=== PATIENT | female | born 1965 | race Caucasian/White ===

== ENCOUNTER 2024-12-03 06:27 | Emergency (ER) | payer SELFPAY ==
[2024-12-03] VITALS (22 sets, daily range): BP systolic 129–156; BP diastolic 81–114; PULSE 74–106; TEMP 36.8; O2SAT 94–99; BMI 30.3
--- NOTE | 2024-12-03 06:56 | PC.NURSE ---
Pt in darkened room wearing sunglasses. at the bedside.
--- NOTE | 2024-12-03 07:11 | ECG_ITS ---
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 Measurements Intervals [place] Rate: 94 P: 42 MI: 162 QRS: 38 QRSD: 74 T: 50 QT: 326 QTc: 378 Interpretive Statements 1100 Sinus rhythm 9110 normal ECG No previous ECG available for comparison Electronically Signed On 12-03-2024 9:31:55 EDT by VALENTINA KELLY M.D.
--- NOTE | 2024-12-03 07:13 | ED.GENADUL1 ---
HPI HPI - General Adult General Chief complaint: Headache Stated complaint: VOMITING, HEADACHE Time Seen by Provider: 12/03/24 07:07 Source: patient Mode of arrival: walk-in History of Present Illness HPI narrative: 58-year-old female presents for headache. She has had it for about 24 hours and is mostly frontal but goes into her ears. No trauma or fever or stiff neck. She has been nauseous and has been vomiting. She is on blood pressure medication but has not taken it since the night before last. The pain is moderate to severe and continuous. Related Data Home Medications ?Medication ?Instructions ?Recorded ?Confirmed empagliflozin 10 mg tablet 10 mg PO DAILY 12/03/24 12/03/24 (Jardiance) ketorolac 0.4 % eye drops drp ophthalmic (eye) 12/03/24 lisinopril 10 mg tablet mg 12/03/24 montelukast 10 mg tablet mg 12/03/24 pantoprazole 40 mg tablet,delayed mg PO 12/03/24 release rosuvastatin 20 mg tablet mg 12/03/24 tirzepatide 15 mg/0.5 mL mg subcut 12/03/24 subcutaneous pen injector (Mounjaro) trazodone 300 mg tablet mg 12/03/24 valacyclovir 1 gram tablet mg 12/03/24 Previous Rx's ?Medication ?Instructions ?Recorded xorwknbufg-nftnrcsabtpfo-jmxjgrsz 1 cap PO Q6H PRN pain 5 days #20 12/03/24 50 mg-300 mg-40 mg capsule caps (Fioricet) ondansetron 4 mg disintegrating 4 mg PO Q6H PRN nausea and 12/03/24 tablet vomiting #20 tabs Allergies Allergy/AdvReac Type Severity Reaction Status Date / Time albuterol AdvReac Severe Hypotension Verified 12/03/24 06:51 Opioid HPI Opioid Management Most Recent Opioid Data: Last Pain Scale 8 Today, 09:19 Last MAR Pain Assessment Today, 07:38 Review of Systems ROS Narrative A ten point review of systems is negative except as noted above. PFSH PFSH Social History Little interest or pleasure in doing things: not at all Feeling down, depressed, or hopeless: not at all Exam Narrative Exam Narrative: Nurses note and vital signs reviewed and patient is not hypoxic. General: The patient is sitting in a darkened room with sunglasses on. Skin: Warm, dry, no pallor noted. There is no rash noted. Head: Normocephalic, atraumatic; neck supple, no nuchal rigidity Eye: Normal conjunctiva, no drainage, EOMI. PERRL Ears, Nose, Mouth, and Throat: oral mucosa is moist. Nares patent. Cardiovascular: Regular Rate and Rhythm Respiratory: Patient is in no distress, no accessory muscle use, lungs are clear to auscultation, no wheezing, rales or rhonchi Back: non-tender GI: Soft and nontender Musculoskeletal: The patient has no evidence of calf tenderness, no pitting edema, symmetrical pulses noted bilaterally Neurological: A&O, normal speech; upper and lower extremity strength intact and symmetric Psychiatric: Cooperative Constitutional Vital Signs, click to edit/add: Last Vital Signs Temp 98.3 F 12/03/24 06:39 Pulse 87 12/03/24 10:10 Resp 16 12/03/24 10:10 BP 131/81 12/03/24 10:00 Pulse Ox 95 12/03/24 10:10 O2 Del Method Room Air 12/03/24 06:39 Course Vital Signs Vital signs: Vital Signs Temperature 98.3 F 12/03/24 06:39 Pulse Rate 98 H 12/03/24 06:39 Respiratory Rate 16 12/03/24 06:39 Blood Pressure 156/114 H 12/03/24 06:39 Pulse Oximetry 98 12/03/24 06:39 Oxygen Delivery Method Room Air 12/03/24 06:39 Temperature 98.3 F 12/03/24 06:39 Pulse Rate 87 12/03/24 10:10 Respiratory Rate 16 12/03/24 10:10 Blood Pressure 131/81 12/03/24 10:00 Pulse Oximetry 95 12/03/24 10:10 Oxygen Delivery Method Room Air 12/03/24 06:39 Medical Decision Making MDM Narrative Medical decision making narrative: Her workup including CT brain is negative. Blood pressure has improved as well without specific intervention. She is discharged home on Fioricet and Zofran and feels improved. Treatment diagnosis and follow-up were discussed with the patient. Differential Diagnosis Differential Diagnosis: Hypertension, headache, intracranial hemorrhage Lab Data Lab results reviewed: Yes I reviewed the patient's lab results Labs: Lab Results 12/03/24 Range/Units 07:24 WBC 7.9 (4.0-11.0) 10^3/uL RBC 5.42 H (4.20-5.40) 10^6/uL Hgb 15.9 (12.0-16.0) g/dL Hct 46.5 (36.0-48.0) % MCV 85.8 (81.0-99.0) fL MCH 29.3 (26.7-34.0) pg MCHC 34.2 (29.9-35.2) g/dL RDW 13.0 (11.0-15.0) % Plt Count 224 (150-450) 10^3/uL MPV 8.7 L (9.5-13.5) fL Neut % (Auto) 77.7 H (43.0-75.0) % Lymph % (Auto) 15.2 L (20.5-60.0) % Callaway % (Auto) 5.9 (1.7-12.0) % Eos % (Auto) 1.0 (0.9-7.0) % Baso % (Auto) 0.1 L (0.2-2.0) % Neut # (Auto) 6.1 (1.4-6.5) 10^3/uL Lymph # (Auto) 1.2 (1.2-3.8) 10^3/uL Callaway # (Auto) 0.5 (0.3-0.8) 10^3/uL Eos # (Auto) 0.1 (0.0-0.7) 10^3/uL Baso # (Auto) 0.0 (0.0-0.1) 10^3/uL Abs Immat Gran (auto) 0.01 (0.00-0.03) 10^3/uL Imm/Tot Granulo (auto) 0.1 (0.0-0.5) % Sodium 141 (136-145) mmol/L Potassium 3.5 (3.5-5.1) mmol/L Chloride 102 (98-107) mmol/L Carbon Dioxide 25.3 (21.0-32.0) mmol/L Anion Gap 17.2 BUN 16.0 (7.0-18.0) mg/dL Creatinine 0.71 (0.55-1.02) mg/dL Est GFR ( Amer) >60 (>=60 mL/min/1.73m^2) Est GFR (Non-Af Amer) >60 (>=60 mL/min/1.73m^2) BUN/Creatinine Ratio 22.5 Glucose 86 (74-106) mg/dL Calcium 8.8 (8.5-10.1) mg/dL Imaging Data CT scan - head: Radiologist's impression: ITS Impressions Head CT 12/03/24 08:35 IMPRESSION: NO ACUTE INTRACRANIAL ABNORMALITY. Impression dictated by: Tamara Black M.D. 12/03/2024 9:22 AM Dictation Location: [place] [address] Electronically authenticated by: [id number] Y Date: 12/03/2024 09:22 ECG Data Attestation: I personally reviewed and interpreted this ECG as follows: (EKG on my interpretation shows sinus rhythm with rate of 94) Discharge Plan Discharge Chief Complaint: Headache Clinical Impression: Headache Patient Disposition: Home, Self-Care Time of Disposition Decision: 10:40 Condition: Good Mode of Transportation: Private Vehicle Prescriptions / Home Meds: New xduwupezkf-qbwkagwqwgilu-vhyz [Fioricet] 50-300-40 mg capsule 1 cap PO Q6H PRN (Reason: pain) 5 Days Qty: 20 0RF ondansetron 4 mg tablet,disintegrating 4 mg PO Q6H PRN (Reason: nausea and vomiting) Qty: 20 0RF No Action valacyclovir 1 gram tablet pantoprazole 40 mg tablet,delayed release (DR/EC) PO lisinopril 10 mg tablet trazodone 300 mg tablet montelukast 10 mg tablet rosuvastatin 20 mg tablet ketorolac 0.4 % drops OPHTHALMIC (EYE) Mounjaro 15 mg/0.5 mL pen injector SUBCUT Jardiance 10 mg tablet 10 mg PO DAILY Print Language: Italian Instructions: Acute Headache (ED) Referrals: Allan Brunson MD [Physician, Family Practice] - 1 week
--- OUTSIDE RECORDS SUMMARY | 2024-12-03 07:17 | XMS_ITS | Data Portability ---
Author Organization [place] - [facility], [facility] Address [address] [place] [address], [place] [address] Care Team Providers Care [employer] Member Name Role Phone ORESTES RUBALCAVA Primary Care Provider Assessment No assessment recorded. Plan of Treatment Reminders Order Date Submit Date Provider Last Modified By Organization Details Last Modified Time Details Appointments None recorded. Lab influenza virus A + B + SARS-CoV-2 (COVID19) Ag panel, rapid IA, upper respirator y specimen 2023 024 [email or web address] [facility], [address] [place] [address], [place], [address], 4 17:07:53 respirator y pathogens DNA and RNA, SALVATORE+probe, respirator y specimen 2023 024 SADIA [facility], [address] [place] [address], [place], [address], 4 20:06:15 Referral orthopedic surgeon referral - Imaging: [email or web address]: [email or web address] 2024 025 AKIL Zheng MD, [address], [place], [address], 5 11:09:59 Procedures None recorded. Surgeries None recorded. Imaging XR, foot, 3 or more view 2024 025 [email or web address] [facility], [address] [place] [address], [place], [address], 10:54:15 Medication Orders ketorolac 10 mg tablet 2024 025 [place] [address], [address] [place] [address], [place], [address], 10:50:46 neomycin-p olymyxin-h ydrocort 3.5 mg-10,000 unit/mL-1 % ear drops,susp 2023 024 [place] [address], [address] [place] [address], [place], [address], 17:08:57 Augmentin 875 mg-125 mg tablet 2023 024 [place] [address], [place], [address], 17:08:00 fluticason e propionate 50 mcg/actuat ion nasal spray,susp ension [address] [place], [address], 17:07:59 Patient TargetsNo targets recorded. Patient Instructions Encounter Date Encounter Id Patient Instructions Last Modified By Organization Details Last Modified Time 02/05/2024 [id number] increase oral fluids meds as prescribed sinus irrigation as discussed continue sudafed return for shortness of breath, worsening cough [email or web address] Not available 02/05/2024 17:07:04 If your conditio n worsens we recommend that you receive another evaluation at the emergency room immediately or contact your primary medical clinics after hours call service to discuss your concerns. You must understand that you've received an Urgent Care treatment only and that you may released before all your medical problems are known or treated. You, the patient, will arrange follow up care as instructed. Return to clinic if symptoms get worse or persist after 48 hours of treatment. [email or web address] Not available 02/05/2024 17:06:53 08/11/2024 [id number] RICE: 1: Rest Pa in is your body's signal that something is wrong. As soon as you're hurt, stop your activity, and rest as much as possible for the first 2 days. avoid putting weight on the injured area for 24 to 48 hours. Resting also helps prevent further bruising. 2: Ice Ice is a pbrwp-yvj-fxtj tool for reducing pain and swelling. Apply an ice pack (covered with a light, absorbent towel to help prevent frostbite) for 15-20 minutes every two to three hours during the first 24 to 48 hours after your injury. Don't have an ice pack? A bag of frozen peas or corn will work just fine. 3: Compression This means wrapping the injured area to prevent swelling. Wrap the affected area with an elastic medical bandage (like an JUNE bandage). You want it to be snug but not too tight -- if it's too tight, it will interrupt blood flow. If the skin below the wrap turns blue or feels cold, numb, or tingly, loosen the bandage. If these symptoms don't disappear right away, seek immediate medical help. 4: Elevation Doing so reduces pain, throbbing, and swelling. It's not as tricky to do as you might think. For example, if you have an ankle sprain, you can prop your leg up on pillows while sitting on the sofa. Keep the injured area raised whenever possible, even when you're not icing it. [email or web address] Not available 08/11/2024 10:46:15 MDM: MODERATE COMPLEXITY Right foot pain since this am. Differential Diagnosis includes, but not limited to: sprain, strain, fracture, subluxation, contusion, among others. I addressed one acute, uncomplicated injury. Unique tests ordered and independently reviewed/interpret ed include : Foot X-Ray. Prescription drug management provided today with Toradol. Post op shoe applied and patient given crutches and instructed on proper use. Will refer to ortho. Discussed signs and symptoms of concern and when to return to the clinic vs. going to the emergency department. Instructed to follow up with primary care provider if symptoms persist or worsen. Patient verbalized understanding. All questions answered to the patient's satisfaction. Patient left the clinic in stable condition at time of discharge. [email or web address] Not available 08/11/2024 10:50:06 Reason for Referral Orthopedic Surgeon Referral for Pain in left foot Imaging: [email or web address] Referring Physician: Naomi Thorne, Family Medicine, Encounter Date: 08/11/2024 Results Created Date Observation Date Name Description Value Unit Range Abnormal Flag Note LastModifiedBy Organization Detail LastModifiedTime 02/05/20 24 02/05/2024 respi rator y patho gens DNA and RNA, SALVATORE+p robe, respi rator y speci men PANEL: COVID RESPIR ATORY PLUS Not Available [facility] [address] [place], [address], 02/05/2024 17:01:24 02/05/20 24 02/05/2024 influ aditya virus A + B + SARS- CoV-2 (COVI D19) Ag panel , rapid IA, upper respi rator y speci men Flu/COVID-19 Negati ve Not Available [facility] [address] [place], [address], 02/05/2024 17:01:13 08/12/19 25 08/11/2024 XR, foot, 3 or more view No observ ation record ed. [email or web address] [facility] [address] [place], [address], 08/11/2024 10:50:11 Result Notes None recorded. Problems Name Problem SNOMED Code Status Onset Date Resolution Date Notes Provider Name and Address Organization Details Recorded Time Hypercholester olemia 01847277 Active 2023 Juan Pablo dunaway, [place] - [facility] 4 16:31:52 Gastroesophage al reflux disease 374478733 Active 2023 Juan Pablo dunaway, [place] - [facility] 4 16:32:22 Hypertensive disorder 46220173 Active 2023 Juan Pablo dunaway, [facility] 4 16:32:36 Diabetes mellitus 83097204 Active 2023 [place] [facility] 4 16:39:13 Problem Notes None recorded. Medical Equipment None Reported. Allergies Allergen ID Allergen Name Allergen Category Reaction Reaction Severity Criticality Documentation Date Start Date Code Code System Note Provider Name and Address Organization Details Recorded Time 46477 albuterol medicatio n Not available Not available Not available 02/05/2024 435 RxNorm [place] [facility] 4 16:30:27 Medications Name Sig Start Date Stop Date Status Note LastModified by Organization Details LastModified Time Augmentin 875 mg-125 mg tablet Take 1 tablet every 12 hours by oral route for 10 days, for sinus infection. 2023 active Not Available Not Available Not Avai lable ketorolac 10 mg tablet Take 1 tablet every 6 hours by oral route for 5 days. 2024 active Not Available Not Available Not Avai lable fluticasone propionate 50 mcg/actuatio n nasal spray,suspen meme Augusta 1 spray every day by intranasal route for 14 days, for sinus congestion. 2023 active Not Available Not Available Not Avai lable neomycin-daysi ymyxin-hydro alexys 3.5 mg-10,000 unit/mL-1 % ear drops,susp INSTILL 4 DROPS INTO AFFECTED EAR(S) BY OTIC ROUTE 3 TIMES PER DAY 2023 active Not Available Not Available Not Avai lable melatonin active Not Available Not Atiya ilable Not Available lisinopril active Not Available Not Av ailable Not Available trazodone active Not Available Not Atiya ilable Not Available Vitamin D3 active Not Available Not Av ailable Not Available Zyrtec active Not Available Not Availa ble Not Available pantoprazole active Not Available Not Available Not Available rosuvastatin active Not Available Not Available Not Available Jardiance active Not Available Not Atiya ilable Not Available Vitals Date Recorded Body height Body temperature Respiratory rate Oxygen saturation Oxygen saturation in Arterial blood by Pulse oximetry Heart rate Body mass index (BMI) Body weight Systolic blood pressure Diastolic blood pressure Provider Name and Address Organization Details Last Updated DateTime 5 154.94 cm 96.4 [degF] 18 /min 98 % 98 % 91 /min 31.2 kg/m2 22266.7 4 g 132 mm[Hg] 86 mm[Hg] Tuan conner [place] - [facility] 5 09:58:11 Date Recorded Respiratory rate Body height Body mass index (BMI) Body weight Body temperature Oxygen saturation Oxygen saturation in Arterial blood by Pulse oximetry Heart rate Systolic blood pressure Provider Name and Address Organization Details Last Updated DateTime 4 18 /min 154.94 cm 31.2 kg/m2 51245.7 4 g 98 [degF] 95 % 95 % 106 /min 113 mm[Hg] Juan Pablo Peters [place] - [facility] 4 16:34:13 Social History None recorded. 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 Family History Nothing Reported. Medical History Condition Response Coronary Artery Disease N Gout N Anxiety/Depression N Atrial Fibrillation N Colon Cancer N Kidney Stones N Hyperthyroidism N Blood disorders N Breast Cancer N Ostomy N COPD N Depression N Lung Disease N Glaucoma N Hypothyroidism N Pacemaker N Peripheral Arterial Disease N Clotting Disorder N Prostate Problems N Diverticulitis/Diverticulosis N Paralysis N Lung Mass N Deep Vein Thrombosis N Obstructive Sleep Apnea N Cystic Fibrosis N Anxiety Disorder N Autoimmune disease N Arthritis N Blood Clot N Developmental Problems N Cancer N Stroke N Crohn's Disease N Chronic Kidney Disease N Endometriosis N Bladder or Kidney Problems N High Cholesterol Y Liver Disease N Arrhythmia N Dialysis N Schizophrenia N Fibromyalgia N Kidney Disease N Chronic Obstructive Pulmonary Disease N Parkinson's Disease N Migraines N Brain Tumors N ADD/ADHD N Anemia N Multiple Sclerosis N Colon Polyps N Brain Injury N Heart Attack ([place]) N Diabetes Y Anticoagulation therapy N Cardiomyopathy N Bleeding Disorder N Heart Murmur N Cerebral Palsy N AIDS/HIV N Congestive Heart Failure (CHF) N Hyperlipidemia Y Eczema N Back Problems N Diverticulitis N Dementia N Asthma N Atrial Flutter N Lupus N Psoriasis N Epilepsy/Seizures N Peripheral Vascular Disease N Reflux/GERD N Sleep Apnea N GERD/Reflux Y Thyroid Disorder N Aneurysm N Hepatitis N Cirrhosis N Heart Disease N Pulmonary Embolism N Hypertension Y Autism Spectrum Disorder (ASD) N Osteoporosis N Gynecological HistoryNo gynecological history recorded. Obstetrics History GPAL:G 0 P 0 0 0 0 Past Encounters Encounter ID Performer Location Encounter Start Date Encounter Closed Date Diagnosis/Indication Diagnosis SNOMED-CT Code Diagnosis ICD10 Code Diagnosis Note [id number] DEMARCO Ruvalcaba [address] [place] [address] 02/05/2024 16:24:47 02/06/2024 09:08:42 Acute bacterial sinusitis 75140296 J01.90 Acute otit is externa of right ear 6128266516 023559 H60.501 [id number] NAOMI THORNE NP [address] [place] [address] 08/11/2024 09:47:02 08/11/2024 10:54:14 Pain in left foot 0103369960 22841 M79.672 Health Concerns Section Related Observation LastModified by Organization Detai ls LastModified Time None Recorded Concern Status LastModified by Organization Details LastModified Time None Recorded Advance Directives Directive None Recorded Payers Insurance Date Sequence Insurance Name Policy Number Policy Cha Covered Member ID Cha Member ID Guarantor Name 08/12/2024 1 [place] [id number] Sallie Saucedo [id number] Sallie Saucedo 02/05/2024 SLIDING FEE 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 - 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 Sallie Saucedo 08/12/2024 2 *SELF PAY* Ki ivon Saucedo Notes Date Note Type Note Provider Name and Address Organization Details Recorded Time 02/05/20 24 text/htm l CoughReported bypatient.Quality:productive; dry Severity:improving;worsening; moderate Duration:constant; acute (<3 weeks) Onset/Timing:sudden Context:non-smoker Modifying Factors:OTC medication Associated Symptoms:no fever; no chills; no chest pain; no heartburn; no nausea; no vomiting; no edema; no agitation; no sputum production; no chest wall tenderness; no shortness of breath; no throat clearing;wheezing;nasal discharge; no urinary incontinence; no muscle pain;tiredness; no syncope; no depression; no hoarseness; no dyspnea; no rib fractures; no difficulty swallowing; no hemoptysisEaracheReported bypatient.Location:bilateral Quality:throbbing; tension Severity:no change; continuous Duration:started: (2 d) Timing:onset date: (2 d) Context:no sick contacts; no recent swimming/water in ear; no exposure to second hand smoke; no head trauma; not grinding teeth; no recent air travel Modifying Factors:hurts to lie on, or pull on ear(R ear tender to tragus manipulation) Associated Symptoms:hearing loss(chronic R nerve deafness since childhood)Upper Respiratory SymptomsReported bypatient.Location:nasal Quality:hacking cough Severity:mild Duration:symptoms lasting less than 2 weeks Onset/Timing:sudden Context:no sick contacts; no foreign travel; non-smoker Associated Symptoms:no chest pain; no sputum production; no shortness of breath; no wheezing; no cyanosis; no change in number of pillows needed to sleep at night; no sweats; no fever; no morning cough; no sore throat; no vomiting; no diarrhea; no rash; no nausea; no headache; no chills; no malaise; no conjunctivitis;fatigue Bilat ear pain R>L x 2 d, sinus drainage and pressure x 4 d refractory to sudafed. DEMARCO Ruvalcaba [address] [place] [address] [place], [address], [facility] 02/06/2024 08:59:40 08/12/19 25 text/htm l FootReported bypatient.Location:left; dorsal Quality:aching; throbbing Severity:worsening; moderate Timing:abrupt (onset last night) Duration:acute Context:struck foot on bed last night Aggravating Factors:walking Alleviating Factors:rest Associated Symptoms:no weakness; no numbness; no tingling; no swelling; no redness; no warmth; no ecchymosis; no catching/locking; no popping/clicking; no buckling; no grinding; no instability; no radiation down leg; no drainage; no fever; no chills; no weight loss; no change in bowel/bladder habits; no paresthesias Previous Surgery:none Prior Imaging:none NAOMI THORNE NP [address] [facility], [place], [address], [facility] 08/11/2024 10:54:07 OBGyn Episode No OBEpisode recorded.
--- OUTSIDE RECORDS SUMMARY | 2024-12-03 07:17 | XMS_ITS | Clinical Summary ---
Author Organization [facility] Address [address] [place] [address] Care Team Providers Care Department Mgr Name Role Phone Gregor Ramirez MD Primary Care Provider [phone] Allergies Active Allergy Reactions Criticality Noted Date Comments Albuterol Palpitations,Other (See Comments) High Medications pen needle, diabetic 32 gauge x /32 Needle BD [place] Ultra Fine Pen [place], See Instructions, use as directed with vicrustamza, # 100 EA, 3 Refill(s), Pharmacy: [facility] [id number] 05/10/20 16 Active fluticasone propionate (FLONASE) 50 mcg/actuation nasal spray See Instructions, INSTILL 1 SPRAY IN EACH NOSTRIL EVERY DAY. , # 48 gm, 2 Refill(s), [facility]: [id number], 156, cm, 04/19/21 10:48:00 [employer], Height/Length Measured, 79.5, kg, 04/19/21 10:46:00 [employer], Weight Dosing 07/14/19 22 Active traZODone (DESYREL) 150 MG tablet 150 mg 03/12/20 21 Active lisinopriL (ZESTRIL) 10 MG tablet 10 mg 04/20/20 23 Active montelukast (SINGULAIR) 10 mg tablet See Instructions, Take 1 tablet by mouth once daily, # 90 tab, 5 Refill(s), Maintenance, Pharmacy: [facility] [id number], 156, cm, 01/12/23 14:53:00 CDT, Height/Length Measured, 83.4, kg, 01/12/23 14:53:00 CDT, Weight Dosing 08/21/19 22 Active Jardiance 25 mg Tablet tablet See Instructions, TAKE 1 TABLET BY MOUTH IN THE MORNING, # 90 tab, 3 Refill(s), Maintenance, MYRA, Pharmacy: [facility], 156, cm, 12/29/22 10:10:00 CDT, Height/Length Measured, 84, kg, 12/29/22 10:10:00 CDT, Weight Dosing 01/02/20 23 Active cholecalciferol (Vitamin D3) 5000 units Tablet 125 mcg 03/12/20 21 Active eebpznzm-ogvwwq-yee ck pepper 125 mg-6 mg- 50 mcg Tablet, Chewable Turmeric, 1 tab, Oral, Daily, 0 Refill(s) 09/21/19 23 Active pantoprazole (PROTONIX) 40 mg tablet Take 40 mg by mouth in the morning. Active ondansetron (ZOFRAN-ODT) 8 MG disintegrating tablet See Instructions, DISSOLVE ONE TABLET IN MOUTH TWICE A DAY , # 60 tab, 0 Refill(s), Maintenance, [facility]acy: [id number], 158, cm, 07/17/20 9:55:00 [employer], Height/Length Measured, 80.1, kg, 07/17/20 9:55:00 [employer], Weight Dosing 08/13/19 21 Active promethazine (PHENERGAN) 12.5 MG tablet 12.5 mg 12/24/19 21 Active rosuvastatin (CRESTOR) 20 MG tablet Take 20 mg by mouth in the morning. Active Mounjaro 15 mg/0.5 mL Pen Injector injection 15 mg 05/11/20 23 Active ketorolac (ACULAR) 0.4 % Drops INSTILL 1 DROP INTO EACH EYE TWICE DAILY NEEDED FOR ALLERGY SYMPTOMS 04/12/20 24 Active neomycin-polymyxin- hydrocortisone (CORTISPORIN) 3.5-10,000-1 mg/mL-unit/mL-% OTIC suspension INSTILL 4 DROPS INTO AFFECTED EAR(S) BY OTIC ROUTE 3 TIMES PER DAY 02/05/20 24 Active EPINEPHrine (EPIPEN) 0.3 mg/0.3 mL Auto-Injector 06/04/20 24 Active methylPREDNISolone (METHYLPRED DP) 4 mg tabletIndications:A cute nasopharyngitis follow package directions 21 tablet 06/08/20 24 Active Active Problems Problem Noted Date Diagnosed Date Allergic rhinitis 07/22/2023 Benign essential hypertension 07/22/2023 Chronic GERD 07/22/2023 Elbow pain 07/22/2023 Encounter for wellness examination 07/22/2023 Generalized anxiety disorder 07/22/2023 Gilbert's syndrome 07/22/2023 Lateral epicondylitis of right elbow 07/22/2023 Mixed hyperlipidemia 07/22/2023 Sleep apnea 07/22/2023 Type 2 diabetes mellitus 07/22/2023 Vitamin D deficiency 07/22/2023 Immunizations Immunization Administration Dates Next Due Angle Covid 02/22/2021 Social History Tobacco Use Types Packs/Day Years Used Date Smoking Tobacco: Never Passive Smoke Exposure: Never Smokeless Tobacco: Never Tobacco Cessation:Counseling Given: No Alcohol Use Standard Drinks/Week Comments Yes 0 (1 standard drink = 0.6 oz pur e alcohol) weekends PHQ-2 Answer Date Recorded Patient Health Questionnaire-2 Score 0 07/22/2023 Comments No Sex and Gender Information Value Date Recorded Sex Assigned at Not on file Legal Sex Female 3:49 AM CDT Gender Identity Not on file Sexual Orientation Not on file Last Filed Vital Signs Vital Sign Reading Time Taken Comments Blood Pressure 106/75 06/08/2024 2:18 PM [employer] Pulse 112 06/08/2024 2:18 PM [employer] Temperature 36.2 C (97.2 F) 06/08/2024 2:18 PM [employer] Respiratory Rate 17 09/20/2023 8:16 AM CDT Oxygen Saturation 93% 06/08/2024 2:18 PM [employer] Inhaled Oxygen Concentration - - Weight 76.7 kg (169 lb) 06/08/2024 2:18 PM [employer] Height 154.9 cm (5' 1 ) 06/08/2024 2:18 PM [employer] Body Mass Index 31.93 06/08/2024 2:18 PM [employer] Plan of Treatment Health Maintenance Due Date Last Done Comments MAMMOGRAM 1966 PAP SMEAR 1966 A1C TEST 1976 FOOT EXAM 1976 OPHTHALMOLOGY EXAM 1976 Hepatitis C 1984 Annual Wellness Visit 1986 COLOGUARD 12/26/2011 COLON CANCER SCREENING ANNUAL FOBT 12/26/2011 COLON CANCER SCREENING 12/26/2011 COLONOSCOPY 12/26/2011 COLORECTAL CANCER SCREENING 12/26/2011 Covid-19 Vaccine ( season) 2024 INFLUENZA VACCINE 01/10/2025 06/08/2024 (De clined), 04/27/2018, 04/27/2018 Shingles Vaccine Completed 07/14/2023, 03/17/2023 Insurance [employer] [address] [phone] Care Teams Department Mgr Relationship Specialty Start Date End Date Gregor Ramirez MD [address] [place] [address] PCP - General Internal Medicine 06/08/24
[2024-12-03 07:32] LABS: Basophils Percent Auto 0.1 % (0.2-2.0); Eosinophils Absolute Auto 0.1 10^3/uL (0.0-0.7); Hematocrit 46.5 % (36.0-48.0); Hemoglobin 15.9 g/dL (12.0-16.0); Immature Granulocytes Abs Auto 0.01 10^3/uL (0.00-0.03); Immature Granulocytes Pct Auto 0.1 % (0.0-0.5); Lymphocytes Absolute Auto 1.2 10^3/uL (1.2-3.8); Lymphocytes Percent Auto 15.2 % (20.5-60.0); Mean Corpuscular HGB Conc 34.2 g/dL (29.9-35.2); Mean Corpuscular Hemoglobin 29.3 pg (26.7-34.0); Mean Corpuscular Volume 85.8 fL (81.0-99.0); Mean Platelet Volume 8.7 fL (9.5-13.5); Monocytes Absolute Auto 0.5 10^3/uL (0.3-0.8); Monocytes Percent Auto 5.9 % (1.7-12.0); Neutrophils Absolute Auto 6.1 10^3/uL (1.4-6.5); Neutrophils Percent Auto 77.7 % (43.0-75.0); Platelet Count 224 10^3/uL (150-450); Red Blood Count 5.42 10^6/uL (4.20-5.40); White Blood Count 7.9 10^3/uL (4.0-11.0)
[2024-12-03] MEDS: MORPHINE SULFATE 4 MG/ML VIAL IV (07:38)
[2024-12-03] MEDS: ONDANSETRON PF 4 MG/2 ML VIAL IV (07:38)
[2024-12-03 07:41] LABS: Anion Gap 17.2; BUN Creatinine Ratio 22.5; Calcium 8.8 mg/dL (8.5-10.1); Carbon Dioxide 25.3 mmol/L (21.0-32.0); Chloride 102 mmol/L (98-107); Estimated GFR (African America >60 (>=60 mL/min/1.73m^2); Estimated GFR (Non-African Ame >60 (>=60 mL/min/1.73m^2); Glucose 86 mg/dL (74-106); Potassium 3.5 mmol/L (3.5-5.1); Sodium 141 mmol/L (136-145)
--- NOTE | 2024-12-03 08:35 | CT_ITS ---
The [address] [address] Patient Name: JAIRO VYAS MRN: [id number] date: 1965 Sex: F Assigned Patient Location: ED.MAIN Current Patient Location: ED.MAIN Accession/Order Number: [id number] Exam Date: 12/03/2024 09:19 Report Date: 12/03/2024 09:22 At the request of: INDRA GAYTAN MD Procedure: CT head/brain wo con CT BRAIN WITHOUT CONTRAST: CLINICAL HISTORY: Headache, elevated blood pressure COMPARISON: None TECHNIQUE: Contiguous axial unenhanced images were obtained through the brain. This CT exam was performed using one or more following dose reduction techniques: Automated exposure control, adjustment of the mA and/or kV according to patient size, or use of iterative reconstruction technique. FINDINGS: The ventricles are normal in size and position. There are no areas of abnormal attenuation. There is no hemorrhage, mass effect or extra-axial collections. There is minimal left maxillary mucosal thickening. The remaining imaged paranasal sinuses and mastoid air cells are clear. There is vertebral artery and carotid siphon plaque. CT/CT head/brain wo con IMPRESSION: NO ACUTE INTRACRANIAL ABNORMALITY. Impression dictated by: Tamara Black M.D. 12/03/2024 9:22 AM Dictation Location: [place] [address] Electronically authenticated by: [id number] Y Date: 12/03/2024 09:22
[2024-12-03] MEDS: DIPHENHYDRAMINE HCL 50 MG/ML VIAL 25 MG IVP (09:19)
[2024-12-03] MEDS: KETOROLAC TROMETHAMINE 30 MG/ML VIAL IVP (09:19)
[2024-12-03] MEDS: METHYLPREDNISOLONE SOD SUCC PF 125 MG/2 ML VIAL IVP (09:20)
== END 2024-12-03 10:54 | disposition home or self-care (01) ==
PROVIDERS: Emergency Provider Emergency Medicine
DX: R51.9 Headache, unspecified (principal); Z79.899 Other long term (current) drug therapy
CPT/HCPCS: 36415; 70450; 80048; 85025; 93005; 96374; 96375; 99285; J1200; J1885; J2270; J2405; J2919